=== PATIENT | female | born 1975 | race Caucasian/White ===

== ENCOUNTER → 2017-04-19 08:46 | Outpatient (CLI) | payer OTHER, SELFPAY ==
--- NOTE | 2017-04-19 12:23 | NEURO ---
NCS and/or EMG Patient Report Ordering Doctor: Ledy Kerns DATE OF SERVICE: 04/19/17 Jodi Ramsey is a 42-year-old female presents for electrodiagnostic testing of the upper limbs. She reports numbness and tingling in both hands. Electrodiagnostic findings: Median motor nerve demonstrates normal distal latency, amplitude and conduction velocity bilaterally. Normal ulnar motor response bilaterally. Prolonged right median sensory latency is noted. Normal ulnar and radial sensory responses. On needle EMG, all muscles tested in the upper limbs show no evidence of denervation with normal motor unit action potentials. Electrodiagnostic impression: This is an abnormal study in the upper limbs. 1. Electrodiagnostic findings demonstrate right-sided median mononeuropathy. This is consistent with a mild right carpal tunnel syndrome. 2. There is no electrodiagnostic evidence for left-sided median mononeuropathy. 3. No EMG evidence for cervical radiculopathy is noted If there are any further questions please do not hesitate to contact me.
== END ==
PROVIDERS: Family Provider Nurse Practitioner; PCP Nurse Practitioner; Visit Provider Nurse Practitioner
DX: R20.2 Paresthesia of skin (principal)
CPT/HCPCS: 95886; 95912

== ENCOUNTER 2017-04-19 16:40 | Outpatient (RCR) | payer OTHER, SELFPAY ==
--- NOTE | 2017-08-29 13:37 | HP.PTDCNRP_ITS ---
HP - Discharge Summary (1) - Patient Information JIM RIOS was seen in my office for initial evaluation on 04/19/17. The following Plan of Care was established for this patient: Initial Frequency: 2-3x /Week Initial Duration: 4-6 Weeks - Anticipated Interventions Patient/Client Instruction: Educate patient on: Condition, Plan of Care, Risk Factors, Benefits of Fitness Program For the Purpose of:: To improve self management Therapeutic Exercise to Include: Strength training, Body mechanics, Postural training, Flexibilty training, In an aquatic setting, Dynamic Lumbar Stabilization For the Purpose of:: To improve ability of physical actions for home/community/ work/leisure This patient was last seen in our office . Pertinent comments regarding their Physical therapy will appear below: This patient has not returned to Physical Therapy and is appropriate to return to MD for further follow-up as needed. At this point I will be discontinuing this patient from physical therapy. I would be happy to see this patient again in the future if found appropriate by the physician. Thank you! Jessica Rivera
== END 2017-04-19 19:00 | disposition home or self-care (01) ==
LOC: PT 16:40
PROVIDERS: Family Provider Nurse Practitioner; PCP Nurse Practitioner; Visit Provider Orthopaedic Surgery
DX: M51.36 Other intervertebral disc degeneration, lumbar region (principal); M54.5 Low back pain; M54.12 Radiculopathy, cervical region
CPT/HCPCS: 97162; 97530

== ENCOUNTER → 2017-05-17 12:22 | Outpatient (CLI) | payer OTHER, SELFPAY ==
--- NOTE | 2017-05-17 15:43 | NEURO ---
NCS and/or EMG Patient Report Ordering Doctor: Ledy Kerns DATE OF SERVICE: 05/17/17 Jodi Ramsey presents for electrodiagnostic testing of the lower limbs. She has chief complaint of low back pain with intermittent radiation into the legs. Letter diagnostic findings: Normal peroneal and tibial motor responses are noted on the left side. Normal right tibial motor response. Right peroneal motor amplitude is normal when measured at the tibialis anterior. Sensory responses are within normal limits. F waves and H reflexes are within normal limits. Needle EMG testing shows no evidence of denervation in any muscles tested, including the lumbar paraspinals. Electrodiagnostic impression: This is a normal electrodiagnostic study of the lower limbs. There is no electrodiagnostic evidence for lumbar radiculopathy or peripheral neuropathy. If there are any further questions, please do not hesitate to contact me
== END ==
PROVIDERS: Family Provider Nurse Practitioner; PCP Nurse Practitioner; Visit Provider Nurse Practitioner
DX: R20.2 Paresthesia of skin (principal)
CPT/HCPCS: 95886; 95913

== ENCOUNTER → 2017-07-21 13:13 | Outpatient (CLI) | payer OTHER, SELFPAY ==
--- NOTE | 2017-07-21 13:45 | MRI_ITS ---
STUDY: MRI LUMBAR SPINE WITHOUT CONTRAST REASON FOR EXAM: Female, 42 years old. Back pain and bilateral lower extremity radiculopathy TECHNIQUE: Standardized fat and water weighted pulse sequences were obtained in the sagittal and axial planes. COMPARISON: None FINDINGS: T12-L1: Normal endplates. Normal disc height, hydration and morphology. Normal bilateral facet joints. Normal central canal and bilateral lateral recesses. Normal bilateral intervertebral neural foramina. Normal lumbar lordosis. There is no substantial scoliosis. Normal conus medullaris that terminates at L1 L1-2: Normal endplates. Normal disc height, hydration and morphology. Normal bilateral facet joints. Normal central canal and bilateral lateral recesses. Normal bilateral intervertebral neural foramina. L2-3: Normal endplates. Normal disc height, hydration and morphology. Normal bilateral facet joints. Normal central canal and bilateral lateral recesses. Normal bilateral intervertebral neural foramina. L3-4: Normal endplates. Normal disc height, desiccation and minimal annular bulge.. Bilateral facet arthropathy.. Normal central canal. Mild to moderate bilateral recess and neuroforaminal encroachment.. L4-5: Normal endplates. Normal disc height, desiccation and minor annular bulge with small right posterolateral/foraminal disc protrusion.. Normal bilateral facet joints. Normal central canal. Mild right lateral recess and neuroforaminal stenosis. L5-S1: Grade 1 retrolisthesis Degenerative endplate changes. Normal disc height, desiccation and minor bulging disc osteophyte complex with small broad-based central disc extrusion and inferior migration of the disc fragment impinging upon the descending nerve roots... Bilateral facet arthropathy. Mild narrowing of the central canal. Moderate bilateral recess and neural foraminal stenosis. Normal visualized sacral ala. Normal visualized paraspinous soft tissue structures. MRI/Spine Lumbar (Routine) IMPRESSION: Mild spondylosis and multilevel spinal stenosis secondary to disc disease and bony hypertrophy. Findings as above. Electronically Signed: Chaparro Mccormick MD at 20:27 EDT , Service support ,
== END ==
LOC: MRI 13:14
PROVIDERS: Family Provider Family Medicine; PCP Family Medicine; Visit Provider Family Medicine
DX: M54.9 Dorsalgia, unspecified (principal)
CPT/HCPCS: 72148

== ENCOUNTER → 2017-10-13 11:14 | Outpatient (CLI) | payer OTHER, SELFPAY ==
[2017-10-13 12:26] LABS: Absolute Lymphocyte Count 1.96 X10^3/ul (0.83-4.51); Absolute Neutrophil Count 5.3 X10^3/uL (2.0-7.7); Basophil# 0.02 X10^3/uL; Basophil% 0.2 % (0-1); Eosinophil# 0.12 X10^3/uL; Eosinophils% 1.4 % (0-5); Hematocrit 37.9 % (37-47); Hemoglobin 12.4 g/dl (12.0-15.0); Lymphocyte # 1.96 X10^3/ul (4.0); Lymphocyte % 23.5 % (19-41); Mean Corp Hgb Conc 32.7 g/gl (32-36); Mean Corpuscular Volume 94.8 fL (81-99); Mean Platelet Vol. 9.9 fl (6.2-12.0); Monocyte# 0.91 X10^3/uL; Monocyte% 10.9 % (0-10); Neutrophil # 5.31 X10^3/uL (2.7-7.7); Neutrophil % 63.6 % (47-70); Platelet Count 295 K/mm3 (150-450); RBC Distribution Width SD 46.6 fl (35.1-43.9); White Blood Count 8.4 K/mm3 (4.4-11.0)
[2017-10-13 12:27] LABS: POSITIVE COUNT NO; POSITIVE DIFFERENTIAL NO; POSITIVE MORPHOLOGY NO
[2017-10-13 12:40] LABS: Anion Gap 10 (5-15); BUN 16 mg/dL (7-18); BUN/Creat Ratio 18.1 RATIO (10-20); Chloride 103 mmol/L (98-107); Creatinine, Serum 0.88 mg/dL (0.55-1.02); EST Glomerular Filtration Rate 74 mL/min (>60); Est Glom Filt Rate - Afr Amer 90 mL/min (>60); Glucose 101 mg/dL (74-106); Potassium 4.1 mmol/L (3.5-5.1); Sodium Level 141 mmol/L (136-145)
== END ==
LOC: BFHLAB 11:14
PROVIDERS: Family Provider Family Medicine; PCP Family Medicine; Visit Provider Family Medicine
DX: R60.0 Localized edema (principal)
CPT/HCPCS: 36415; 80048; 85025

== ENCOUNTER → 2019-12-20 | Outpatient (CLI) | payer BC, SELFPAY ==
[2019-12-20 13:09] LABS: Absolute Lymphocyte Count 2.32 X10^3/uL (0.83-4.51); Absolute Neutrophil Count 4.3 X10^3/uL (2.0-7.7); Basophil# 0.04 X10^3/uL; Basophil% 0.5 % (0-1); Eosinophil# 0.15 X10^3/uL; Hematocrit 42.7 % (37-47); Hemoglobin 13.8 g/dL (12.0-15.0); Lymphocyte # 2.32 X10^3/ul (4.0); Lymphocyte % 31.3 % (19-41); Mean Corp Hgb Conc 32.3 g/dL (32-36); Mean Corpuscular Hgb 31.3 pg (27.0-32.0); Mean Corpuscular Volume 96.8 fL (81-99); Mean Platelet Vol. 9.6 fl (6.2-12.0); Monocyte# 0.63 X10^3/uL; Monocyte% 8.5 % (0-10); NRBC Flagged by Analyzer 0 % (0-5); Neutrophil # 4.25 X10^3/uL (2.7-7.7); Neutrophil % 57.4 % (47-70); Platelet Count 338 K/mm3 (150-450); RBC Distribution Width CV 13.6 % (11.6-14.6); RBC Distribution Width SD 48.2 fl (35.1-43.9); Red Blood Count 4.41 M/mm3 (4.2-5.4); White Blood Count 7.4 K/mm3 (4.4-11.0)
[2019-12-20 13:15] LABS: Color, Urine Yellow (Yellow); Glucose, Dipstick Normal (Normal); Ketone-Dipstick Negative (Negative); Leukocyte Esterase-Dipstick Negative /ul (Negative); Nitrite-Dipstick Negative (Negative); Occult Blood-Urine 10 /ul (Negative); Protein-Dipstick Negative (Negative); Specific Gravity, Urine 1.025 (1.002-1.030); Urine Bilirubin Dipstick Negative (Negative); Urine Clarity Clear (Clear); Urine Urobilinogen Normal (Normal)
[2019-12-20 13:19] LABS: ALB/GLOB Ratio 0.8 RATIO (0.9-2.4); AST(SGOT) 21 U/L (15-37); Alanine Aminotransfer ALT/SGPT 31 U/L (13-56); Albumin, Serum 3.5 g/dL (3.2-5.0); Alkaline Phosphatase 91 U/L (45-117); Anion Gap 7 (5-15); BUN 11 mg/dL (7-18); BUN/Creat Ratio 10.7 RATIO (10-20); Chloride 103 mmol/L (98-107); Creatinine, Serum 1.03 mg/dL (0.55-1.02); EST Glomerular Filtration Rate 61 mL/min (>60); Est Glom Filt Rate - Afr Amer 74 mL/min (>60); Globulin 4.3 g/dL (2.2-4.2); Glucose 132 mg/dL (74-106); Potassium 3.9 mmol/L (3.5-5.1); Protein, Total 7.8 g/dL (6.4-8.2); Sodium Level 137 mmol/L (136-145)
== END | disposition home or self-care (01) ==
LOC: BFHLAB 10:24
PROVIDERS: PCP Family Medicine; Visit Provider Family Medicine
DX: R10.11 Right upper quadrant pain (principal)
CPT/HCPCS: 36415; 80053; 81002; 85025

== ENCOUNTER → 2021-01-27 09:48 | Outpatient (CLI) | payer BC, SELFPAY ==
--- NOTE | 2021-01-27 09:51 | VDLE_ITS ---
Reason For Study: Edema RIGHT LEFT CFV is compressible, spontaneous, phasic, CFV is compressible, spontaneous, phasic, competent and demonstrates normal competent, and demonstrates normal augmentation. augmentation. FV is compressible, spontaneous, phasic, FV is compressible, spontaneous, phasic, competent and demonstrates normal competent and demonstrates normal augmentation. augmentation. POP V is compressible, spontaneous, phasic, POP V is compressible, spontaneous, phasic, competent and demonstrates normal competent and demonstrates normal augmentation. augmentation. T/P Trunk is compressible. T/P Trunk is compressible. PTV is compressible. PTV is compressible. RT PerV is compressible. LT PerV is compressible. SFJ is competent and measures 0.80 x 0.97 cm. SFJ is competent and measures 1.04 x 1.03 cm. GSV proximal thigh measures 0.35 x 0.37 cm. GSV proximal thigh measures 0.41 x 0.41 cm. GSV at knee measures 0.44 x 0.44 cm. GSV at knee measures 0.41 x 0.41 cm. GSV is competent throughout. GSV is competent throughout. SSV at junction is competent and measures SSV at junction is competent and measures 0.44 x 0.46 cm. 0.30 x 0.32 cm. Procedure This is a venous duplex using B-mode, color flow and spectral Doppler. Exam performed in department. A preliminary report was called and/or faxed to [facility]. VL/Venous Duplex US - Alberto Extrem Interpretation Summary Deep veins of the lower extremities are bilaterally patent and compressible seg mentally. There is no evidence of deep vein thrombosis on either side. Valvular competence appears in tact within the proximal deep venous systems bilaterally. The great saphenous veins appear bila terally patent and compressible segmentally. Sapheno-femoral junctions are bilaterally competent . Valvular competence appears to be intact segmentally within the great saphenous veins bilaterally. Small saphenous veins are patent and competent bilaterally. Ordering Physician: Kevin Dwyer Referring Physician: Adilene Carter Performed By: Elvira Abdi RVT
== END ==
LOC: CVS 09:50
PROVIDERS: PCP Family Medicine; Referring Provider Family Medicine; Visit Provider Family Medicine
DX: I87.2 Venous insufficiency (chronic) (peripheral) (principal)
CPT/HCPCS: 93970

== ENCOUNTER → 2023-01-24 | Outpatient (CLI) | payer OTHER, BC, SELFPAY ==
[2023-01-28 18:07] LABS: Age Gdln ACOG Testing 30-65 (.); HPV APTIMA, High Risk Negative (Negative)
[2023-01-28 20:55] LABS: HPV Reflexed? YES, CHARGE PATIENT
== END | disposition home or self-care (01) ==
LOC: LABSPEC 01-25 09:42
PROVIDERS: PCP Family Medicine; Visit Provider Family Medicine
DX: Z12.4 Encounter for screening for malignant neoplasm of cervix (principal)
CPT/HCPCS: 87624; 88175; G0145

== ENCOUNTER → 2023-02-07 | Outpatient (CLI) | payer OTHER, SELFPAY ==
--- NOTE | 2023-02-07 15:10 | BI_ITS ---
MAMMOGRAPHY - BILATERAL SCREENING REASON FOR EXAM: Female, 47 years old. Routine annual screening examination. PERTINENT HISTORY: Non-contributory. TECHNIQUE: Digital bilateral breast nicolasa (3D mammographic acquisition) in the CC and MLO projections. 2-D mediolateral oblique (MLO) and craniocaudad (CC) views of both breasts were obtained. CAD: Full Field Digital Mammography with Computer Added Detection was performed. COMPARISON: None. Baseline examination. FINDINGS: Breast Composition: The breasts are heterogeneously dense, which may obscure small masses. There are no dominant masses or suspicious calcifications. No other significant abnormalities are identified. BI/SCRN MAMM (CAD)W/NICOLASA BILAT IMPRESSION: Negative screening mammogram. Yearly followup mammogram recommended. (A) ASSESSMENT CATEGORY: BIRADS Category 1: Negative. A letter regarding these results will be sent to the patient by the facility within 30 days. Approximately 10% of breast cancers are not detected by mammography. A normal mammogram should not delay biopsy of a clinically suspicious abnormality. [id number] Electronically Signed: Julian Florez MD at 8:35 EST ,
== END | disposition home or self-care (01) ==
LOC: OPBI 15:08
PROVIDERS: PCP Family Medicine; Visit Provider Family Medicine
DX: Z12.31 Encounter for screening mammogram for malignant neoplasm of breast (principal)
CPT/HCPCS: 77063; 77067

== ENCOUNTER 2024-07-24 00:32 | Emergency (ER) | payer OTHER, SELFPAY ==
[2024-07-24 00:33] VITALS: BP 197/109; PULSE 78; RESP 22; TEMP 36.5; O2SAT 99; BMI 31.3
--- NOTE | 2024-07-24 00:49 | CT_ITS ---
PROCEDURE: ABDOMEN/PELVIS W IV CONT ONLY 07/24/2024 REASON FOR EXAM: ABD PAIN TECHNIQUE: Abdomen and pelvis CT with intravenous contrast. Coronal and Sagittal reconstruction series were provided. PATIENT PREPARATION: Per protocol CONTRAST: 95 mL Isovue 300 One or more dose reduction techniques were used (e.g., Automated exposure control, adjustment of the mA and/or kV according to patient size, use of iterative reconstruction technique. RADIATION DOSE SUMMARY: CTDlvol: 17.6 mGy DLP: 975 mGycm COMPARISON: None FINDINGS: Lung bases: Unremarkable Liver: Unremarkable Gallbladder: Unremarkable Spleen: Unremarkable Pancreas: Normal size without evidence of mass surrounding inflammation or ductal dilation. Adrenals: Unremarkable Kidneys: No hydronephrosis or stone. Subcentimeter hypodensity in the lower pole of the right kidney is too small to characterize. Bladder: Unremarkable Reproductive Organs: Unremarkable Bowel: Small hiatal hernia. There is circumferential wall thickening of the gastric antrum, with thickness measuring 1.2 cm. Remainder of the bowel is unremarkable without obstruction. Normal appendix. Lymph nodes: No significant lymphadenopathy. Vasculature: Mild diffuse atherosclerotic calcifications are noted. Bones: Degenerative changes of the spine, worst at L4-5. Abdominal wall: Unremarkable CT/Abdomen/Pelvis W IV Cont ONLY IMPRESSION: Wall thickening of the gastric antrum, which could be the result of gastritis. Consider GI referral for possible endoscopy. Reading Location: [id number]
[2024-07-24] MEDS: Morphine 4 MG/ML Syringe IV (00:54)
[2024-07-24] MEDS: 0.9% Normal Saline (1000mL) 1,000 ML 999 ML IV (00:54)
[2024-07-24] MEDS: Ondansetron 4 MG/2 ML Vial IV (00:54)
--- NOTE | 2024-07-24 01:03 | EDS_ITS ---
HPI History of Present Illness Chief Complaint: Nausea/Vomiting Informant: patient and spouse/S.O. Narrative Narrative: Patient is a 49-year-old female who reports a history of sciatica. She states over the past week she has had intermittent right sided low back pain that does radiate down her right leg. She states that she felt it was her normal sciatic symptoms and therefore she has been taking [id number] medication. However today her back pain increased and became different from her baseline as it was now sharp and radiating around to the upper abdomen. She states with this she has had bouts of nausea and vomiting. She denies any history of gallbladder disease or alcohol use. She states that no one else at home or work has been sick. She states she has been having persistent pain and bouts of vomiting throughout the day and as they have not improved presents for evaluation. Patient states that there has been no loss of bowel or bladder control or IV drug use and she denies any recent injections or procedures to her back to suggest risks for osteomyelitis or discitis. PFSH PFS Medical History no medical history Home Medications ?Medication ?Instructions ?Recorded ?Last Taken ?Type oxycodone-acetaminophen 5 mg-325 1 tab PO Q6H PRN pain 3 days #12 07/24/24 Unknown Rx mg tablet (Percocet) tabs pantoprazole 40 mg tablet,delayed 40 mg PO DAILY 30 da ys #30 tabs 07/24/24 Unknown Rx release (Protonix) promethazine 25 mg tablet 25 mg PO TID PRN nausea and 07/24/24 Unknown Rx vomiting #21 tabs Allergy/AdvReac Type Severity Reaction Status Date / Time Penicillins Allergy Mild Nausea Verified 07/24/24 00:33 Family History Other Diabetes Surgical History no surgical history Social History Smoking Status: Current some day smoker tobacco type: cigarettes ROS ROS ED Constitutional Constitutional ED: Denies chills or fever(s) Eyes Eyes: Denies blurry vision or change in vision ENT ENT ED: Reports sore throat Cardiovascular Cardiovascular: Denies chest pain Respiratory/Chest Respiratory/Chest: Denies cough or dyspnea Gastrointestinal Gastrointestinal: Reports abdominal pain, nausea and vomiting; Denies diarrhea Genitourinary Genitourinary ED: Denies dysuria or hematuria Musculoskeletal Musculoskeletal: Reports back pain Integumentary Denies rash Neurologic Neurologic: Denies headache(s) Hematologic/Lymphatic Hematologic/Lymphatic: Denies easy bleeding or easy bruising Allergic/Immunologic Allergic/Immunologic ED: Denies mouth swelling or tongue swelling EXAM Physical Exam Const Vital Signs: 07/24/24 00:33 Temperature 97.7 F L Temperature Source Temporal Pulse Rate 78 Respiratory Rate 22 H Blood Pressure 197/109 H Blood Pressure Mean 138 Pulse Ox 99 Oxygen Delivery Method Room Air Positive well nourished, well developed and obese General Appearance ED: well developed; Negative for pallor Nutritional Appearance: obese HEENT HEENT Narrative: Normocephalic atraumatic There is erythema in the posterior pharynx without tonsil hypertrophy exudates trismus change in voice or difficulty with secretions. Eyes PERRL and EOMs intact bilaterally General Eye ED: Negative for scleral icterus Neck supple Neck Narrative: No nuchal rigidity or meningeal signs No subcutaneous emphysema palpated Resp normal respiratory effort and clear to auscultation bilaterally Resp Narrative: No nasal flaring retractions tachypnea or accessory muscle use Cardio regular rate and regular rhythm Rate: other Other Details: Heart is regular rate and rhythm without murmurs rubs or gallops Radial and carotid pulses are equal and symmetric GI non-distended and no masses GI Narrative: Abdomen is soft and nondistended with hyperactive bowel sounds. There is pain with palpation in the midepigastric and right upper quadrant region. Negative Nunez sign. Pain appears greatest in the midepigastric region No pulsatile mass or fluid wave Auscultation: hyperactive bowel sounds Palpation: soft Back/Spine no CVA tenderness Extremity normal to inspection Neuro oriented x3, CN's II-XII intact bilaterally and no sensory deficits noted Sensorium / Orientation: alert Motor Exam: strength 5/5 throughout Psych mental status grossly normal Skin no rashes or lesions noted and skin turgor normal General Skin Exam: Negative for jaundice or pallor MDM MDM MDM Narrative Medical decision making narrative: Patient arrived to ER hypertensive but I felt this was related to stress resp onse and pain from her abdomen. With report of upper abdominal pain and bouts of nausea and vomiting differential diagnosis is for biliary colic versus acute cholecystitis versus pancreatitis versus gastritis versus viral stomach infection such as norovirus versus rotavirus. Secondary to his basic blood work was obtained with urine sample and CT scan. Labs revealed no leukocytosis or left shift. There is no signs of NNAMDI or clinically significant electrolyte abnormality. Lipase was normal going against pancreatitis. Urine sample showed no sign of infection or blood to go against pyelonephritis/kidney stone. Patient CT scan showed gastric inflammation consistent with gastritis and did correlate with the location of her pain. There is no findings of perforation obstruction or secondary infection such as colitis diverticulitis or appendicitis. After receiving IV fluids pain medication and Protonix patient did report improvement of her pain and her blood pressure improved as well. On reevaluation her abdomen remains soft and nonsurgical. Therefore at this time with improvement of symptoms and overall negative workup there is no need for admission and patient is otherwise safe for discharge with symptomatic care. History & Record Review Discussion w/independent historian: Patient and Significant other Lab Data Attestation: I reviewed the patient's lab results. Labs: Laboratory Results - last 24 hr 07/24/24 07/24/24 00:38 01:33 WBC 10.4 RBC 5.25 Hgb 16.4 H Hct 46.5 MCV 88.6 MCH 31.2 MCHC 35.3 RDW Std Deviation 42.5 RDW Coeff of Emile 13.1 Plt Count 359 MPV 8.6 Immature Gran % (Auto) 0.300 Neut % (Auto) 67.1 Lymph % (Auto) 24.0 [place] % (Auto) 7.8 Eos % (Auto) 0.4 Baso % (Auto) 0.4 Absolute Neuts (auto) 7.0 Absolute Lymphs (auto) 2.48 Nucleated RBC % 0 Sodium 138 Potassium 3.8 Chloride 97 L Carbon Dioxide 25.9 Anion Gap 16 H BUN 18 Creatinine 0.83 Estim Creat Clear Calc 90.61 Est GFR (MDRD) Non-Af 86 BUN/Creatinine Ratio 21.5 H Glucose 147 H Calcium 10.3 Total Bilirubin 0.29 Direct Bilirubin 0.11 AST 24 ALT 23 Alkaline Phosphatase 126 H Total Protein 8.0 Albumin 4.5 Globulin 3.4 Lipase 26 Urine Color Yellow Urine Clarity Sl. Cloudy Urine pH 8.0 Ur Specific [place] 1.015 Urine Protein 30 H Urine Glucose (UA) Normal Urine Ketones Negative Urine Occult Blood Negative Urine Nitrite Negative Urine Bilirubin Negative Urine Urobilinogen Normal Ur Leukocyte Esterase Negative Urine RBC 0 SEEN Urine WBC 0 SEEN Ur Squamous Epith Cells 0-5 SEEN Amorphous Sediment 1+ Urine Bacteria 1+ Urine Mucus 0 SEEN Radiography Diagnostic Testing: Clinical Impression(s) from Imaging Studies Abdomen/Pelvis CT 07/24/24 00:49 IMPRESSION: Wall thickening of the gastric antrum, which could be the result of gastritis. Consider GI referral for possible endoscopy. Reading Location: [facility] Discharge Plan Triage Chief Complaint: Nausea/Vomiting Other Complaint: Flank Pain ED Provider: Augustine Hopson Dx/Rx/DC Orders Clinical Impression: Nausea and vomiting, Gastritis Instructions: ED Gastritis (Adult), ED Gastroenteritis, Viral (Adult) Prescriptions: New promethazine 25 mg tablet 25 mg PO TID PRN (Reason: nausea and vomiting) Qty: 21 0RF pantoprazole [Protonix] 40 mg tablet,delayed release (DR/EC) 40 mg PO DAILY 30 Days Qty: 30 0RF oxycodone-acetaminophen [Percocet] 5-325 mg tablet 1 tab PO Q6H PRN (Reason: pain) 3 Days Qty: 12 0RF Stand Alone Forms: ED Work / School Excuse Primary Care Provider: Adilene Carter Referrals: Adilene Carter MD [Primary Care Provider] - Activity Restrictions/Additional Instructions: Your workup today showed inflammation of your stomach which correlates with the location of your pain. This inflammation is most likely due from a virus. It would typically take 3 to 7 days for this to resolve. Use the prescribed medication as directed to control your symptoms. Keep yourself well-hydrated and return to the ER should you have any further concerns or worsening of symptoms. Print Language: Montene[place]in Disposition Disposition: Home, Self Care
--- OUTSIDE RECORDS SUMMARY | 2024-07-24 01:03 | XMS RPT_ITS | CCD ---
Author Organization [facility] Care Team Providers Care Technical Sales Representatives Name Role Phone Adilene Carter Primary Care Unavailable Chris Ramirez Attending Unavailable Adilene Carter Referring Unavailable Adilene Carter Attending Unavailable Adilene Carter Primary Care Unavailable Adilene Carter Attending Unavailable Adilene Carter Primary Care Unavailable Adilene Carter Primary Care Unavailable David Hoffman Attending Unavailable Adilene Carter Referring Unavailable Medications Current Medications Medication Drug Class(es) Dates Sig (Normalized) Sig (Original) cephalexin 500 mg oral capsule (2 sources) Cephalosporin Antibacterial Start: 09-19-2022 take 500 mg by mouth every six hours Cephalexin Active 500 MG PO EVERY 6 HOURS September 18, 2022 11:00pm gabapentin 600 mg oral tablet (2 sources) Anti-epileptic Agent Start: 02-25-2022 take 600 mg by mouth at bedtime Gabapentin Active 600 MG PO AT BEDTIME February 25, 2022 12:00am Completed/Discontinued Medications Medication Drug Class(es) Dates Sig (Normalized) Sig (Original) acetaminophen 325 mg / oxyCODONE hydrochloride 5 mg oral tablet (2 sources) Opioid Agonist Start: 02-19-2014 End: 02-25-2022 take 1 tablet by mouth every four hours as needed Oxycodone-Acetami nophen Discontinued 1 - 2 TABLET PO EVERY 4 HOURS NEEDED February 19, 2014 12:00am February 25, 2022 11:44am diazePAM 5 mg oral tablet (2 sources) Benzodiazepine Start: 02-19-2014 End: 02-25-2022 take 5 mg by mouth every eight hours Diazepam Discontinued 5 MG PO EVERY 8 HOURS February 19, 2014 12:00am February 25, 2022 11:44am naproxen 500 mg oral tablet (2 sources) Nonsteroidal Anti-inflammatory Drug Start: 02-19-2014 End: 02-25-2022 take 500 mg by mouth twice daily Naproxen Discontinued 500 MG PO TWICE A DAY February 19, 2014 12:00am February 25, 2022 11:44am Problems Active Problems Problem Classification Problem Date Documented Da te Episodic/Chronic Other screening for suspected conditions (not mental disorders or infectious disease) (2 sources) Encounter for screening mammogram for malignant neoplasm of breast; Translations: [Encounter for screening for malignant neoplasm of cervix] Onset: 02-10-2023 Episodic Other upper respiratory infections (2 sources) Acute maxillary sinusitis; Translations: [Acute maxillary sinusitis, unspecified] 09-19-2022 Episodic Past or Other Problems Problem Classification Problem Date Documented Da te Episodic/Chronic Administrative/social admission (3 sources) Patient encounter status; Translations: [Encounter for pre-employment examination] Onset: 02-25-2022 02-25-2022 Episodic Results Test Name Value Interpretation Reference Range Facility SCRN MAMM (CAD)W/NICOLASA BILATo n 02-07-2023 SCRN MAMM (CAD)W/NICOLASA BILAT [facility] Imaging Services [address] [place] [id number] SCRN MAMM (CAD)W/NICOLASA BILAT MR#: [id number] Acct: [id number] Name: JIM RIOS Rep #: [id number] : 1975 F 47 From: Julian marroquin MD PCP: Dr. Adilene Carter MD Status: [facility] Study: SCRN MAMM (CAD)W/NICOLASA BILAT Date of Exam: 01/20 11/12 Exam# [id number] Ordering Dr: Adilene Carter MD [id number] MAMMOGRAPHY - BILATERAL SCREENING REASON FOR EXAM: Female, 47 years old. Routine annual screening examination. PERTINENT HISTORY: Non-contributory. TECHNIQUE: Digital bilateral breast nicolasa (3D mammographic acquisition) in the CC and MLO projections. 2-D mediolateral oblique (MLO) and craniocaudad (CC) views of both breasts were obtained. CAD: Full Field Digital Mammography with Computer Added Detection was performed. COMPARISON: None. Baseline examination. FINDINGS: Breast Composition: The breasts are heterogeneously dense, which may obscure small masses. There are no dominant masses or suspicious calcifications. No other significant abnormalities are identified. BI/SCRN MAMM (CAD)W/NICOLASA BILAT IMPRESSION: Negative screening mammogram. Yearly followup mammogram recommended. (A) ASSESSMENT CATEGORY: BIRADS Category 1: Negative. A letter regarding these results will be sent to the patient by the facility within 30 days. Approximately 10% of breast cancers are not detected by mammography. A normal mammogram should not delay biopsy of a clinically suspicious abnormality. [id number] Electronically Signed: Julian Florez MD at 8:35 EST Reading Location ID and State: [address] [place] [address] , Service support , CC: Dr. Adilene Carter MD Doctor Of Dental Medicine: Signed Normal [facility] PAP IG w/Reflex HPV GDLNon 1 03-31-2022 ADEQ Comment Normal . [facility] Comment on above: Order Comment: Speci men Comment: [id number] Specimen Comment: Source.............Cervix;Endocervix Specimen Comment: Other..............Post Menopausal Specimen Comment: No. of containers..01 ThinPrep Vial Result Comment: Sati sfactory for evaluation. Endocervical and/or squamous metaplastic cells (endocervical component) are present. Performed By: #### L 7400.0290 #### [facility] [address], [address] Age Gdln ACOG T 30-65 Normal . [facility] Comment on above: Order Comment: Speci men Comment: [id number] Specimen Comment: Source.............Cervix;Endocervix Specimen Comment: Other..............Post Menopausal Specimen Comment: No. of containers..01 ThinPrep Vial Performed By: #### L 7400.0290 #### [facility] [address] [place], [place], [id number] COMM . Normal . [facility] Comment on above: Order Comment: Speci men Comment: [id number] Specimen Comment: Source.............Cervix;Endocervix Specimen Comment: Other..............Post Menopausal Specimen Comment: No. of containers..01 ThinPrep Vial Performed By: #### L 7400.0290 #### [facility] [address] [place], [place], [id number] COMMENT Comment Normal . [facility] Comment on above: Order Comment: Speci men Comment: [id number] Specimen Comment: Source.............Cervix;Endocervix Specimen Comment: Other..............Post Menopausal Specimen Comment: No. of containers..01 ThinPrep Vial Result Comment: This liquid based ThinPrep(R) pap test was screened with the use of an image guided system. Performed By: #### L 7400.0290 #### [facility] [address] [place], [place], [id number] DIAG Comment Normal . [facility] Comment on above: Order Comment: Speci men Comment: [id number] Specimen Comment: Source.............Cervix;Endocervix Specimen Comment: Other..............Post Menopausal Specimen Comment: No. of containers..01 ThinPrep Vial Result Comment: NEGA TIVE FOR INTRAEPITHELIAL LESION OR MALIGNANCY. Performed By: #### L 7400.0290 #### [facility] [address] [place], [address] HPV APTIMA, HR Negative Normal Negative [facility] Comment on above: Order Comment: Speci men Comment: [id number] Specimen Comment: Source.............Cervix;Endocervix Specimen Comment: Other..............Post Menopausal Specimen Comment: No. of containers..01 ThinPrep Vial Result Comment: This nucleic acid amplification test detects fourteen high- risk HPV types (16,18,31,33,35,39,45,51,52,56,58,59,66,68) without differentiation. Performed By: #### L 7400.0290 #### [facility] [address] [place], [address] PAPSMR Comment Normal . [facility] Comment on above: Order Comment: Speci men Comment: [id number] Specimen Comment: Source.............Cervix;Endocervix Specimen Comment: Other..............Post Menopausal Specimen Comment: No. of containers..01 ThinPrep Vial Result Comment: The Pap smear is a screening test designed to aid in the detection of premalignant and malignant conditions of the uterine cervix. It is not a diagnostic procedure and should not be used as the sole means of detecting cervical cancer. Both false-positive and false-negative reports do occur. Performed By: #### L 7400.0290 #### [facility] [address] [place], [address] PERFORM Comment Normal . [facility] Comment on above: Order Comment: Speci men Comment: [id number] Specimen Comment: Source.............Cervix;Endocervix Specimen Comment: Other..............Post Menopausal Specimen Comment: No. of containers..01 ThinPrep Vial Result Comment: Ann Marie Gutierrez, Salesforce Specialist (ASCP) Performed By: #### L 7400.0290 #### [facility] [address] [place], [address] Cervical or vagninal specime n microscopic examination by cytology stain (reported asOrdered By: Adilene Carter on 01-24-2023 Cytology report Cyto stain Doc (Cvx/Vag) Comment . [facility] Comment on above: The Pap smear is a s creening test designed to aid in thedetection of premalignant and malignant conditions of theuterine cervix. It is not a diagnostic procedure andshould not be used as the sole means of detecting cervicalcancer. Both false-positive and false-negative reports dooccur. Laboratory - CytologyOrdered By: Adilene Carter on 01-24-2023 Tapper Bit Cyto stain Nom (Cvx/Vag) [ID] Comment . [facility] Comment on above: Ann Marie Gutierrez, Cytotec hnologist (ASC) Laboratory - Miscellaneous t estsOrdered By: Adilene Carter on 01-24-2023 Service comment (Unsp spec) [Interp] Comment . [facility] Comment on above: This liquid based Th inPrep(R) pap test was screened withthe use of an image guided system. Service comment (Unsp spec) [Interp] . . [facility] No Panel InformationOrdered By: Adilene Carter on 01-24-2023 Pap Smear Additional Comments 30-65 . [facility] Pathology report final diagnosis Narrative Comment . [facility] Comment on above: NEGATIVE FOR INTRAEP ITHELIAL LESION OR MALIGNANCY. Office Visit Reporton [address] [facility] [address] [place] [address] OFFICE VISIT Date of Service: 09/19/22 MR#: [id number] Acct: [id number] Patient: JIM RIOS Rep #: [id number] : 1975 Provider: NATALIE Miller Age/Sex: 47/F Location: [facility] Status: Signed Intake Vital Signs 02/25/22 11:53 09/19/22 08:13 Height 5 ft 6 in 5 ft 6 in Weight: 213 lb 190 lb BMI 34.3 30.7 BP 138/92 H 142/82 H Blood Pressure Location Lt brachial Lt brachial Position Sitting Sitting Respiration 18 16 Pulse 76 86 Pulse Source Monitor Monitor Temp 98.0 F 98.6 F Temp Source Temporal Temporal Pulse Oximetry (%) 97 98 Oxygen Delivery Method room air room air Intake Visit Reasons: CONCERN FOR SINUS INFECTION Chief Complaint: SINUS INFECTION SX Mica Machine Operator Required: No Accompanied by: Self Is patient in pain?: No Allergies No Known Allergies Allergy (Verified 09/19/22 08:14) Medications gabapentin 600 mg tablet 600 mg PO QHS 02/25/22 [History Confirmed 09/19/22] cephalexin 500 mg capsule 500 mg PO Q6H #40 caps 09/19/22 [Rx Confirmed 09/19/22] PFSH Family History Other Diabetes Social History Smoking Status: Current some day smoker tobacco type: cigarettes HPI HPI Chief Complaint: SINUS INFECTION SX Details: JIM RIOS, is a 47 F who presents to the office today for sinus symptoms x 2 weeks. She has nasal congestion and drainage along with sinus pains/pressures. She has not had any coughing/congestion in the chest. No fevers. She has tried OTC meds without relief Exam Const General: cooperative, healthy appearing, comfortable and no acute distress Nutritional Appearance: overweight Orientation: alert, awake and oriented x3 HENMT Nose: nasal discharge purulent bilaterally Face and sinus: no erythema, no edema, sinus tenderness frontal and maxillary and No dry mucous membranes Mouth: oral mucosae normal Throat: posterior oropharynx normal Neck Neck: full ROM and no lymphadenopathy Resp Effort Inspection: normal respiratory effort, able to speak in complete sentences and symmetric chest movement Coding Level of Care Code Off vis,est,level 3 Diagnoses Acute maxillary sinusitis, recurrence not specified J01.00 Recurrence: not specified as recurrent Assessment and Plan Assessment and Plan (1) Acute maxillary sinusitis: Status: Acute Qualifiers: Recurrence: not specified as recurrent Qualified Code(s): J01.00 - Acute maxillary sinusitis, unspecified Medications: New cephalexin 500 mg PO Q6H 40 caps 0RF Plan Patient presents the office today with upper respiratory symptoms x2 weeks. Patient states that it started with some nasal congestion and some drainage and has progressed to have headache/sinus pains or pressures. Patient has had a low-grade fever she states on and off. She has tried qeai-prk-zzsoshx medications without improvement. Physical exam today shows symptoms consistent with acute sinusitis. At this time we will go ahead with antibiotics as this has been 2 weeks and failed conservative measures. Patient states she does not want to take amoxicillin as this does cause her having some side effects. As a result we will go ahead with cephalosporin. Patient should also take anti-inflammatory and ibuprofen 2-3 times daily as well as nzvm-twy-hsgpoyh Flonase or Nasacort. We did discuss anatomy physiology as well as pathophysiology of acute sinusitis. Patient should return to her PCP in 5 to 7 days if no improvement in symptoms. She can also do sinus/saline irrigation rinses. Notify with any other questions or concerns. This note was generated with [employer] dictation software. It may contain incorrect words, spelling, and punctuation that were not noted in checking the note before signing. 09/19/22 1644 Date Chris Marie Signature: Date (if applicable) CC: Normal [facility] Urgent Care Visit Reporton 0 02-25-2022 Urgent Care Visit Report [facility] [address] [place] [address] [address] [place] [address] OFFICE VISIT Date of Service: 02/25/22 MR#: [id number] Acct: [id number] Name: JIM RIOS Rep #: [id number] : 1975 Provider: NATALIE Nguyen Age/Sex: 46/F Location: [facility] Status: Signed Intake Vital Signs 02/25/22 11:53 Height 5 ft 6 in Weight: 213 lb BMI 34.3 BP 138/92 H Blood Pressure Location Lt brachial Position Sitting Respiration 18 Pulse 76 Pulse Source Monitor Temp 98.0 F Temp Source Temporal Pulse Oximetry (%) 97 Oxygen Delivery Method room air Intake Visit Reasons: PE PHYSICAL/WCCC Mica Machine Operator Required: No Accompanied by: None Is patient in pain?: No Allergies No Known Allergies Allergy (Verified 02/25/22 11:44) Medications gabapentin 600 mg tablet 600 mg PO QHS 02/25/22 [History Confirmed 02/25/22] PFSH Family History Other Diabetes Social History (Updated 02/25/22 @ 11:46 by Julianna Segura) Smoking Status: Current some day smoker tobacco type: cigarettes Smoking packs per day: 1 Smoking cigarettes per day: 20.0 HPI HPI Details: JIM RIOS, is a 46 F who presents to the office today for preemployment physical. Please see corresponding scanned documents with today's date. Office Procedures Physical Exam Coding PE Coding Pre-employment PE: Yes Coding Level of Care Code No Charge Diagnoses Encounter for pre-employment health screening examination Z02.1 Assessment and Plan Assessment and Plan (1) Encounter for pre-employment health screening examination: Status: Acute 02/25/22 1203 Date David Marie Signature: Date (if applicable) CC: Normal [facility] Encounters Encounter Date Encounter Type Care Provider Facility Start: 02-07-2023 End: 02-07-2023 Patient encounter procedure [facility] Work Phone: Start: 02-07-2023 End: 02-07-2023 ambulatory [facility] Work Phone: Start: 01-24-2023 End: 01-24-2023 Patient encounter procedure [facility], Specimen Work Phone: Start: 01-24-2023 End: 01-24-[facility] Start: 09-19-2022 End: 09-19-2022 ambulatory Adilene Emma Facility[facility] Start: 02-25-2022 End: 02-25-2022 ambulatory [facility] Procedures Date Procedure Procedure Detail Performing Clinician Start: 02-07-2023 Screening mammography Payers Date Payer Category Payer Private Health Insurance [id number] 2022 Unknown [id number] 2022 Self-pay [id number] Private Health Insurance [facility] [id number] Unknown [id number] 2.16.8 [id number] Unknown [id number] 2.16.8 [id number] Unknown [id number] 2.16.8 [id number] Unknown [id number] 2.16.8 [id number] Social History Date Type Detail Facility [facility]: [facility] Start: 1975 Sex Assigned At Female [facility] Clinical Note 01-24-2023 Note Date & Type Note Facility 01-24-2023 Note [facility] Pap Smear Specimen Adequacy January 24, 2023 4:45pm Comment . Satisfactory for evaluation. Endocervical and/or squamous metaplasticcells (endocervical component) are present. Comment on above: Satisfactory for zurdo luation. Endocervical and/or squamous metaplasticcells (endocervical component) are present. Clinical Note 01-24-2023 Note Date & Type Note Facility 01-24-2023 Note [facility] Pap Smear Specimen Adequacy January 24, 2023 4:45pm Comment . Satisfactory for evaluation. Endocervical and/or squamous metaplasticcells (endocervical component) are present. Comment on above: Satisfactory for zurdo luation. Endocervical and/or squamous metaplasticcells (endocervical component) are present. Evaluation note Note Date & Type Note Facility Evaluation note No assessment information availa ble [facility] Work Phone: Chief Complaint and Reason for Visit Chief Complaint SCREEN Summary Purpose Family History No Family History Records Found Advance Directives No Advanced Directives Records Found Additional Source Comments Care Teams (unrecognized sec tion and content) Team Status: Active Member Role Status Dates Dr. Adilene Carter MD Family Provider Active Dr. Adilene Carter MD Primary Care Provider Active Team Status: Inactive Member Role Status Dates Dr. Adilene Carter MD Primary Care Provider, Attendin g Provider Active Team Status: Active Member Role Status Dates Dr. Adilene Carter MD Primary Care Provider, Attendin g Provider Active Goals (unrecognized section and content) Goals may be documented in a n alternate sectionGoals may be documented in an alternate section INFORMATION SOURCE (unrecogn ized section and content) DATE CREATED AUTHOR 02/18/2023 [facility] FOR RECORDS PERTAINING TO PATIENTS WHO ARE OR HAVE BEEN ENROLLED IN A CHEMICAL DEPENDENCY/SUBSTANCEABUSE PROGRAM, SOME INFORMATION MAY BE OMITTED. This clinical summary was aggregated from multiple sources. Caution should be exercised in using it in the provision of clinical care. This summary normalizes information from multiple sources, and as a consequence, information in this document may materially change the coding, format and clinical context of patient data. In addition, data may be omitted in some cases. CLINICAL DECISIONS SHOULD BE BASED ON THE PRIMARY CLINICAL RECORDS. [employer] [facility]. provides no warranty or guarantee of the accuracy or completeness of information in this document.
[2024-07-24 01:05] LABS: Absolute Lymphocyte Count 2.48 X10^3/uL (0.83-4.51); Basophil# 0.04 X10^3/uL; Basophil% 0.4 % (0-1); Eosinophil# 0.04 X10^3/uL; Eosinophils% 0.4 % (0-5); Hematocrit 46.5 % (37-47); Hemoglobin 16.4 g/dL (12.0-15.0); Lymphocyte # 2.48 X10^3/ul (0.83-4.51); Mean Corp Hgb Conc 35.3 g/dL (32-36); Mean Corpuscular Hgb 31.2 pg (27.0-32.0); Mean Corpuscular Volume 88.6 fL (81-99); Mean Platelet Vol. 8.6 fl (6.2-12.0); Monocyte# 0.81 X10^3/uL; Monocyte% 7.8 % (0-10); NRBC Flagged by Analyzer 0 % (0-5); Neutrophil # 6.95 X10^3/uL (2.7-7.7); Neutrophil % 67.1 % (47-70); Platelet Count 359 K/mm3 (150-450); RBC Distribution Width CV 13.1 % (11.6-14.6); RBC Distribution Width SD 42.5 fl (35.1-43.9); Red Blood Count 5.25 M/mm3 (4.2-5.4); White Blood Count 10.4 K/mm3 (4.4-11.0)
[2024-07-24 01:35] LABS: AST(SGOT) 24 U/L (<=31); Alanine Aminotransfer ALT/SGPT 23 U/L (<=34); Albumin, Serum 4.5 g/dL (3.5-5.0); Alkaline Phosphatase 126 U/L (35-104); Anion Gap 16 (5-15); BUN 18 mg/dL (4-19); BUN/Creat Ratio 21.5 RATIO (10-20); Bilirubin, Direct 0.11 mg/dL (0.00-0.30); Calcium,Total 10.3 mg/dL (7.6-11.0); Carbon Dioxide 25.9 mmol/L (21.0-32.0); Chloride 97 mmol/L (98-108); Creatinine, Serum 0.83 mg/dL (0.70-1.20); EST Glomerular Filtration Rate 86 (>60); Estimated Creatinine Clearance 90.61 ml/min (50-250); Globulin 3.4 g/dL (2.2-4.2); Glucose 147 mg/dL (70-99); Lipase 26 U/L (13-75); Potassium 3.8 mmol/L (3.3-5.1); Sodium Level 138 mmol/L (133-145); Total Bilirubin 0.29 mg/dL (0.00-1.30)
[2024-07-24] MEDS: HYDROmorphone 1 MG/ML Syringe IV (01:36)
[2024-07-24 01:37] LABS: Mucous, Urine 0 SEEN /hpf (<or=2+); Red Blood Cells-Urine 0 SEEN /hpf (0-5); White Blood Cells 0 SEEN /hpf (0-5)
[2024-07-24] MEDS: proCHLORPERazine 10 MG/2 ML Vial IV (01:41)
[2024-07-24 01:51] LABS: Color, Urine Yellow (Yellow); Glucose, Dipstick Normal (Normal); Ketone-Dipstick Negative (Negative); Leukocyte Esterase-Dipstick Negative /ul (Negative); Nitrite-Dipstick Negative (Negative); Occult Blood-Urine Negative /ul (Negative); Protein-Dipstick 30 mg/dl (Negative); Specific Gravity, Urine 1.015 (1.002-1.030); Urine Bilirubin Dipstick Negative (Negative); Urine Clarity Sl. Cloudy (Clear); Urine Urobilinogen Normal (Normal)
[2024-07-24] MEDS: Pantoprazole Sodium 40 MG in 0.9% Normal Saline (100mL MB+) 100 ML 330 MG IV (01:54)
[2024-07-24 01:59] LABS: Amorphous Sediment 1+; Bacteria 1+ /hpf (None Seen); Squamous Epithelial Cells - UA 0-5 SEEN /hpf (5-10)
[2024-07-24] MEDS: Mag Hydrox/Al Hydrox/Simeth 30 ML UDC PO (02:18)
[2024-07-24] MEDS: Lidocaine 2% Viscous15 ML UDC 15 ML PO (02:18)
[2024-07-24 02:21] VITALS: BP 191/88; PULSE 79; RESP 18; TEMP 36.5; O2SAT 98
[2024-07-24 02:32] VITALS: BP 191/88; PULSE 79; RESP 18; O2SAT 98
== END 2024-07-24 02:56 | disposition home or self-care (01) ==
PROVIDERS: Emergency Provider Emergency Medicine; PCP Family Medicine; Visit Provider Emergency Medicine
DX: K29.70 Gastritis, unspecified, without bleeding (principal); M54.41 Lumbago with sciatica, right side; F17.210 Nicotine dependence, cigarettes, uncomplicated
CPT/HCPCS: 74177; 80048; 80076; 81001; 83690; 85025; 96361; 96365; 96375; 99285; Q9967; A4216; J2405